=== PATIENT | female | born 1960 | race Caucasian/White ===

== ENCOUNTER 2023-07-20 08:57 | Outpatient (CLI) | payer OTHER, SELFPAY | END 2023-07-20 08:58 | disposition home or self-care (01) | PROVIDERS: PCP Nurse Practitioner; Visit Provider Surgery | DX: I89.0 Lymphedema, not elsewhere classified (principal); L97.229 Non-pressure chronic ulcer of left calf with unspecified severity; G35 Multiple sclerosis; E66.09 Other obesity due to excess calories; Z68.30 Body mass index [BMI] 30.0-30.9, adult | CPT/HCPCS: G0463 ==

== ENCOUNTER 2023-07-27 11:04 | Outpatient (CLI) | payer OTHER, SELFPAY | END 2023-07-27 11:05 | disposition home or self-care (01) | LOC: WOUND 11:05 | PROVIDERS: PCP Nurse Practitioner; Visit Provider Surgery | DX: I89.0 Lymphedema, not elsewhere classified (principal); L97.229 Non-pressure chronic ulcer of left calf with unspecified severity; G35 Multiple sclerosis | CPT/HCPCS: G0463 ==

== ENCOUNTER 2023-08-03 11:09 | Outpatient (CLI) | payer OTHER, SELFPAY | END 2023-08-03 11:10 | disposition home or self-care (01) | LOC: WOUND 11:09 | PROVIDERS: PCP Nurse Practitioner; Visit Provider Surgery | DX: I89.0 Lymphedema, not elsewhere classified (principal); L97.222 Non-pressure chronic ulcer of left calf with fat layer exposed; G35 Multiple sclerosis | CPT/HCPCS: 97597; G0463 ==

== ENCOUNTER 2023-08-10 11:07 | Outpatient (CLI) | payer OTHER, SELFPAY | END 2023-08-10 11:08 | disposition home or self-care (01) | PROVIDERS: PCP Nurse Practitioner; Visit Provider Surgery | DX: I89.0 Lymphedema, not elsewhere classified (principal); L97.222 Non-pressure chronic ulcer of left calf with fat layer exposed; G35 Multiple sclerosis | CPT/HCPCS: 97597 ==

== ENCOUNTER 2023-08-17 10:57 | Outpatient (CLI) | payer OTHER, SELFPAY | END 2023-08-17 10:58 | disposition home or self-care (01) | LOC: WOUND 11:06 | PROVIDERS: PCP Nurse Practitioner; Visit Provider Surgery | DX: I89.0 Lymphedema, not elsewhere classified (principal); L97.228 Non-pressure chronic ulcer of left calf with other specified severity; G35 Multiple sclerosis | CPT/HCPCS: 87070; 87186; G0463 ==

== ENCOUNTER 2023-08-24 11:04 | Outpatient (CLI) | payer OTHER, SELFPAY | END 2023-08-24 11:05 | disposition home or self-care (01) | LOC: WOUND 11:09 | PROVIDERS: PCP Nurse Practitioner; Visit Provider Surgery | DX: I89.0 Lymphedema, not elsewhere classified (principal); L97.228 Non-pressure chronic ulcer of left calf with other specified severity; B95.61 Methicillin susceptible Staphylococcus aureus infection as the cause of diseases classified elsewhere; G35 Multiple sclerosis | CPT/HCPCS: G0463 ==

== ENCOUNTER 2023-08-31 10:57 | Outpatient (CLI) | payer OTHER, SELFPAY | END 2023-08-31 10:58 | disposition home or self-care (01) | LOC: WOUND 10:57 | PROVIDERS: PCP Nurse Practitioner; Visit Provider Surgery | DX: I89.0 Lymphedema, not elsewhere classified (principal); L97.222 Non-pressure chronic ulcer of left calf with fat layer exposed; E66.09 Other obesity due to excess calories; Z68.30 Body mass index [BMI] 30.0-30.9, adult | CPT/HCPCS: G0463 ==

== ENCOUNTER 2023-09-07 11:02 | Outpatient (CLI) | payer OTHER, SELFPAY | END 2023-09-07 11:03 | disposition home or self-care (01) | LOC: WOUND 11:02 | PROVIDERS: PCP Nurse Practitioner; Visit Provider Surgery | DX: I89.0 Lymphedema, not elsewhere classified (principal); L97.228 Non-pressure chronic ulcer of left calf with other specified severity; G35 Multiple sclerosis | CPT/HCPCS: G0463 ==

== ENCOUNTER 2023-09-14 10:54 | Outpatient (CLI) | payer OTHER, SELFPAY | END 2023-09-14 10:55 | disposition home or self-care (01) | LOC: WOUND 10:54 | PROVIDERS: PCP Nurse Practitioner; Visit Provider Surgery | DX: I89.0 Lymphedema, not elsewhere classified (principal); L97.221 Non-pressure chronic ulcer of left calf limited to breakdown of skin; G35 Multiple sclerosis | CPT/HCPCS: 97597 ==

== ENCOUNTER 2023-09-21 11:03 | Outpatient (CLI) | payer OTHER, SELFPAY | END 2023-09-21 11:04 | disposition home or self-care (01) | LOC: WOUND 11:03 | PROVIDERS: PCP Nurse Practitioner; Visit Provider Surgery | DX: I89.0 Lymphedema, not elsewhere classified (principal); L97.222 Non-pressure chronic ulcer of left calf with fat layer exposed; G35 Multiple sclerosis | CPT/HCPCS: 97597 ==

== ENCOUNTER 2023-09-28 10:54 | Outpatient (CLI) | payer OTHER, SELFPAY | END 2023-09-28 10:55 | disposition home or self-care (01) | LOC: WOUND 10:54 | PROVIDERS: PCP Nurse Practitioner; Visit Provider Surgery | DX: I89.0 Lymphedema, not elsewhere classified (principal); L97.228 Non-pressure chronic ulcer of left calf with other specified severity; G35 Multiple sclerosis | CPT/HCPCS: G0463 ==

== ENCOUNTER 2023-10-05 11:01 | Outpatient (CLI) | payer OTHER, SELFPAY | END 2023-10-05 11:02 | disposition home or self-care (01) | LOC: WOUND 11:01 | PROVIDERS: PCP Nurse Practitioner; Visit Provider Surgery | DX: I89.0 Lymphedema, not elsewhere classified (principal); L97.228 Non-pressure chronic ulcer of left calf with other specified severity; G35 Multiple sclerosis | CPT/HCPCS: G0463 ==

== ENCOUNTER 2023-10-12 10:51 | Outpatient (CLI) | payer OTHER, SELFPAY | END 2023-10-12 10:52 | disposition home or self-care (01) | LOC: WOUND 10:51 | PROVIDERS: PCP Nurse Practitioner; Visit Provider Surgery | DX: I89.0 Lymphedema, not elsewhere classified (principal); L97.222 Non-pressure chronic ulcer of left calf with fat layer exposed; L97.218 Non-pressure chronic ulcer of right calf with other specified severity; G35 Multiple sclerosis | CPT/HCPCS: G0463 ==

== ENCOUNTER 2023-10-19 10:58 | Outpatient (CLI) | payer OTHER, SELFPAY | END 2023-10-19 10:59 | disposition home or self-care (01) | LOC: WOUND 10:58 | PROVIDERS: PCP Nurse Practitioner; Visit Provider Physician Assistant | DX: I89.0 Lymphedema, not elsewhere classified (principal); L97.221 Non-pressure chronic ulcer of left calf limited to breakdown of skin; L97.821 Non-pressure chronic ulcer of other part of left lower leg limited to breakdown of skin; G35 Multiple sclerosis | CPT/HCPCS: 97597 ==

== ENCOUNTER 2023-10-26 10:58 | Outpatient (CLI) | payer OTHER, SELFPAY | END 2023-10-26 10:59 | disposition home or self-care (01) | LOC: WOUND 10:58 | PROVIDERS: PCP Nurse Practitioner; Visit Provider Surgery | DX: I89.0 Lymphedema, not elsewhere classified (principal); L97.228 Non-pressure chronic ulcer of left calf with other specified severity | CPT/HCPCS: G0463 ==

== ENCOUNTER 2023-11-02 10:56 | Outpatient (CLI) | payer OTHER, SELFPAY | END 2023-11-02 10:57 | disposition home or self-care (01) | LOC: WOUND 10:56 | PROVIDERS: PCP Nurse Practitioner; Visit Provider Surgery | DX: I89.0 Lymphedema, not elsewhere classified (principal); L97.228 Non-pressure chronic ulcer of left calf with other specified severity; G35 Multiple sclerosis; E66.09 Other obesity due to excess calories; Z68.30 Body mass index [BMI] 30.0-30.9, adult | CPT/HCPCS: G0463 ==

== ENCOUNTER 2023-11-03 11:00 | Outpatient (RCR) | payer OTHER, SELFPAY ==
[2023-08-15 13:28] VITALS: BMI 29.2
--- NOTE | 2023-08-15 16:13 | OT.OPLE2 ---
OT Outpatient Lymphedema Eval* OT Outpatient Lymphedema Eval* Start: 08/15/23 13:28 Freq: Status: Active Protocol: Document 08/15/23 13:28 SUNNY (Rec: 08/15/23 16:13 SUNNY [id number]) E-signed By Sol Swanson, OTR/L, CLT OT Outpatient Evaluation Details Type Type Eval Complexity High Insurance Information Insurance Information Other Insurance [facility] Height and Weight Height Height 160.02 cm Weight Weight 74.843 kg Weight Measurement Method Stated by Patient BMI Body Mass Index (kg/m?) 29.2 BMI Classification Overweight OT OP Lymphedema Evaluation Current Condition/Medical Diagnosis Referring Provider Dr. 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 Other Precautions L posterior Venous Leg Ulcer ( being treated at the wound care clinic for this) Order from the wound care clinic: *Elevate legs above the level of your heart daily for 30 mins or more Medical Contraindications DM Medical History Medical History DM Medical History Comments PCP: Lian Bronson DNP ([facility]) Per chart on the Order No kidney or heart concerns Patient has a dx of Multiple Sclerosis, Lymphedema, 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 Usually the R and L leg are similar in size Living Situation Current Living Situation Home With Spouse Or SO Current Living Situation Comments Patient no longer ambulates due to her neurological dx: [place] Caregiver is her spouse, who provides assistance with all ADLs (transfers with the [employer]) Patient Difficulties Difficulties With Any Of The Following Walking,Dressing,Reaching Feet & Toes,Bathing/Showering, Preparing Meals,Sleeping In Bed Impairments Impairments Loss of Mobility,Difficulties With ADLs,Limb Heaviness,Poor Clothing Fit Problem List Problem List Limited Knowledge of Lymphedema Treatment/Condition /Precautions,Limited Knowledge of Skin Care & Infection Precautions,Significant Risk For Infection For Lymphedema Related Complications,Does Not Have a HEP,Does Not Know How To Bandage For Limb Reduction, Does Not Have Appropriate Compression Garments For LT Management,Presents With Increased Fall Risk Secondary To Lymphedema,Presents With Impaired Mobility/ROM Exercise History Does Patient Exercise Regularly No Pain Pain Yes Pain Comments 05/14 (general all over her body); L LE posterior calf has pain at the wound site Previous Treatment Previous Treatment For Swelling/ Compression Garment,Elevation Lymphedema Previous Treatment/Current Home Program Patient was issued 20-30 mmHg compression stockings when she was at [facility] but it is unknown if she was properly fitted and measured for these , she states that they were uncomfortable around the top of her foot (as she can has spasms) and felt more comfortable when she switched to 15 mmHg compression stockings. Patient needs different compression, was interested in trying a velcro wrap, it is important that her shoes still fit her. Compression History Does Patient Currently Wear Compression Yes During Daytime Compression During Daytime Comments Compression stockings started in 2022 Does Patient Currently Wear Compression No At Night Current Swelling (Location/Pitting/Texture) Pitting Scale: 0 = No pitting 1+ Tissue returns to normal almost immediately 2+ Tissue returns after 15-30 seconds 3+ Tissue returns after 1-1/2 minutes 4+ Tissue returns after 2-3 minutes N/A Tissue no longer pits due to induration Tissue texture: Soft or indurated Clinical Presentation Area Tissue no longer pits due to induration. Erythema present bilaterally but worse on the L LE (especially the top of the L foot). Both feet feel cold to the touch and patient states, my feet always feel cold to me This is blanchable with no concerns for infection at this time. L LE is weeping, R LE has dryness, especially around the area of the calf. Clinical Presentation Pitting/Texture Fibrosis present from ankle to mid thigh with the calf region being the most firm ARLYN: 1.04 Toes nails are thick and discolored (needing to be trimmed) /caregiver does this at home Skin Changes Stasis Dermatitis,Fibrosis, Limited Skin Mobility Capillary Refill Brisk Type of Swelling Secondary Staging Staging Stage 2 Circumferential Measurements Lower Extremity Left Lower Extremity Great Toe (in cm) 9 MTP (in cm) 24 Arch (in cm) 25.9 Calcaneus (in cm) 27.8 Ankle (in cm) 26 10 cm above Calcaneus Measurement 29.8 20 cm above Calcaneus Measurement 39 30 cm above Calcaneus Measurement 42 40 cm above Calcaneus Measurement 50 50 cm above Calcaneus Measurement 53.2 Total Girth in cm 326.7 LE Volume C 660.31 LE Volume D 947.30 LE Volume E 1305 LE Volume F 1688 LE Volume G 2119.47 Lower Extremity Volume Total in cm 6,720.08 Right Lower Extremity Great Toe (in cm) 9.7 MTP (in cm) 25.4 Arch (in cm) 27 Calcaneus (in cm) 30 Ankle (in cm) 26.5 10 cm above Calcaneus Measurement 32 20 cm above Calcaneus Measurement 42 30 cm above Calcaneus Measurement 46.6 40 cm above Calcaneus Measurement 51.2 50 cm above Calcaneus Measurement 57.3 Total Girth in cm 347.7 LE Volume C 765 LE Volume D 1096 LE Volume E 1563.10 LE Volume F 1904.26 LE Volume G 2344.48 Lower Extremity Volume Total in cm 7,672.84 Assessment Assessment 63-year-old female patient referred to skilled OT from the wound care clinic with medical dx of Lymphedema ( bilateral LE); Multiple Sclerosis; 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 Patient was pleasant, alert, orientated, asked great questions in session, was an active listener to information presented and showed signs of motivation/willingness to follow the presented protocol in POC (her spouse/caregiver was also present for the duration of the Eval). Therapist took measurements of bilateral LE's and explained to patient what would occur in the next 4 sessions. PLAN: manual lymph drainage, teach patient/caregiver self-massage /Lymph node clearing, fit and size patient for appropriate compression wraps, customize a home exercise program that fits the needs and ability of patient. Patient was a pleasure to work with today and it is anticipated that patient will make gains towards the written goals in POC. Patient Goals Patient Goals To reduce the size of my legs so that I can move them better and they will feel less heavy Click To Default Short Term Goals Standard Goals Short Term Goals Goal: Patient and or caregiver will understand lymphedema precautions to decrease risk of infection and further lymphedema related complications Goal: Patient will develop a tolerance for wearing multi- layer, short stretch bandages between treatment sessions to facilitate limb decongestion Goal: Patient will experience decreased pitting edema in order to improve tissue health and decrease risk for infection/cellulitis Goal: Patient will perform HEP with minimal assistance in order to improve lymphatic flow and venous return Click To Default Fpc Goals Standard Goals [employer] Leader Goals Goal: Patient and/or caregiver will be independent with short-stretch compression bandaging for continued volume reduction and prevention of recurrence Goal: Patient will experience increased ROM and mobility in order to improve safety and independence with transfers and mobility Treatment Plan Treatment Plan Evaluation,Edema Control,Joint Mobilization,Manual Therapy, Therapeutic Exercise, Therapeutic Activities,Self- Care/Home Management,Education Expected Frequency 1-2x Week Expected Duration 12 + weeks Certification Certification Statement I Certify That: Therapy Services Provided, Therapy Plan Established, Therapy Plan Reviewed Certification Information Clinic ID # [id number] Initial Certification Date 08/15/23 Recertification Due Date 12/13/23 Provider Signature Required Yes Provider Signature Shows Agreement With POC & Medical Necessity Physician NPI Number Write NPI# Here Physician Comment/Change Comment or Changes Physician Signature & Date Requested Please Sign/Date Here
[2023-08-15 16:14] VITALS: BMI 29.2
[2023-08-22 11:56] VITALS: BMI 29.2
[2023-08-24 12:25] VITALS: BMI 29.2
[2023-08-29 12:27] VITALS: BMI 29.2
[2023-08-31 14:29] VITALS: BMI 29.2
[2023-09-07 15:39] VITALS: BMI 29.2
[2023-09-12 08:33] VITALS: BMI 29.2
[2023-09-14 12:55] VITALS: BMI 29.2
[2023-09-20 10:03] VITALS: BMI 29.2
[2023-09-22 10:01] VITALS: BMI 29.2
[2023-09-27 09:57] VITALS: BMI 29.2
[2023-09-29 14:52] VITALS: BMI 29.2
[2023-10-04 08:45] VITALS: BMI 29.2
[2023-10-06 14:13] VITALS: BMI 29.2
[2023-10-11 11:30] VITALS: BMI 29.2
[2023-10-13 16:28] VITALS: BMI 29.2
[2023-10-18 13:22] VITALS: BMI 29.2
[2023-10-20 14:31] VITALS: BMI 29.2
[2023-10-25 13:32] VITALS: BMI 29.2
[2023-10-27 10:24] VITALS: BMI 29.2
[2023-11-01 11:33] VITALS: BMI 29.2
[2023-11-03 10:35] VITALS: BMI 29.2
== END 2023-12-28 15:19 | disposition home or self-care (01) ==
PROVIDERS: PCP Nurse Practitioner; Visit Provider Surgery
DX: I89.0 Lymphedema, not elsewhere classified (principal); Z51.89 Encounter for other specified aftercare
CPT/HCPCS: 97140; 97167

== ENCOUNTER 2023-11-09 11:00 | Outpatient (CLI) | payer OTHER, SELFPAY | END 2023-11-09 11:01 | disposition home or self-care (01) | LOC: WOUND 11:00 | PROVIDERS: PCP Nurse Practitioner; Visit Provider Surgery | DX: I89.0 Lymphedema, not elsewhere classified (principal); L97.822 Non-pressure chronic ulcer of other part of left lower leg with fat layer exposed; G35 Multiple sclerosis | CPT/HCPCS: 11042; 11045 ==

== ENCOUNTER 2023-11-16 10:57 | Outpatient (CLI) | payer OTHER, SELFPAY | END 2023-11-16 10:58 | disposition home or self-care (01) | LOC: WOUND 10:57 | PROVIDERS: PCP Nurse Practitioner; Visit Provider Surgery | DX: I89.0 Lymphedema, not elsewhere classified (principal); L97.828 Non-pressure chronic ulcer of other part of left lower leg with other specified severity; G35 Multiple sclerosis | CPT/HCPCS: G0463 ==

== ENCOUNTER 2023-11-23 10:59 | Outpatient (CLI) | payer OTHER, SELFPAY | END 2023-11-23 11:00 | disposition home or self-care (01) | LOC: WOUND 10:59 | PROVIDERS: PCP Nurse Practitioner; Visit Provider Surgery | DX: I89.0 Lymphedema, not elsewhere classified (principal); L97.822 Non-pressure chronic ulcer of other part of left lower leg with fat layer exposed; G35 Multiple sclerosis | CPT/HCPCS: 97597; 97598 ==

== ENCOUNTER 2023-11-30 10:57 | Outpatient (CLI) | payer OTHER, SELFPAY | END 2023-11-30 10:58 | disposition home or self-care (01) | LOC: WOUND 10:57 | PROVIDERS: PCP Nurse Practitioner; Visit Provider Surgery | DX: I89.0 Lymphedema, not elsewhere classified (principal); L97.828 Non-pressure chronic ulcer of other part of left lower leg with other specified severity; G35 Multiple sclerosis | CPT/HCPCS: G0463 ==

== ENCOUNTER 2023-12-07 10:56 | Outpatient (CLI) | payer OTHER, SELFPAY | END 2023-12-07 10:57 | disposition home or self-care (01) | LOC: WOUND 10:56 | PROVIDERS: PCP Nurse Practitioner; Visit Provider Surgery | DX: I89.0 Lymphedema, not elsewhere classified (principal); L97.822 Non-pressure chronic ulcer of other part of left lower leg with fat layer exposed; G35 Multiple sclerosis | CPT/HCPCS: G0463 ==

== ENCOUNTER 2023-12-14 10:59 | Outpatient (CLI) | payer OTHER, SELFPAY | END 2023-12-14 11:00 | disposition home or self-care (01) | LOC: WOUND 10:59 | PROVIDERS: PCP Nurse Practitioner; Visit Provider Surgery | DX: I89.0 Lymphedema, not elsewhere classified (principal); L97.822 Non-pressure chronic ulcer of other part of left lower leg with fat layer exposed; G35 Multiple sclerosis | CPT/HCPCS: 97597 ==

== ENCOUNTER 2023-12-21 10:58 | Outpatient (CLI) | payer OTHER, SELFPAY | END 2023-12-21 10:59 | disposition home or self-care (01) | LOC: WOUND 10:58 | PROVIDERS: PCP Nurse Practitioner; Visit Provider Surgery | DX: I89.0 Lymphedema, not elsewhere classified (principal); L97.828 Non-pressure chronic ulcer of other part of left lower leg with other specified severity; G35 Multiple sclerosis | CPT/HCPCS: G0463 ==

== ENCOUNTER 2023-12-28 10:59 | Outpatient (CLI) | payer OTHER, SELFPAY | END 2023-12-28 11:00 | disposition home or self-care (01) | LOC: WOUND 10:59 | PROVIDERS: PCP Nurse Practitioner; Visit Provider Surgery | DX: I89.0 Lymphedema, not elsewhere classified (principal); L97.822 Non-pressure chronic ulcer of other part of left lower leg with fat layer exposed; G35 Multiple sclerosis | CPT/HCPCS: 97597 ==

== ENCOUNTER 2024-01-04 10:42 | Outpatient (CLI) | payer OTHER, SELFPAY | END 2024-01-04 10:43 | disposition home or self-care (01) | LOC: WOUND 11:00 | PROVIDERS: PCP Nurse Practitioner; Visit Provider Surgery | DX: I89.0 Lymphedema, not elsewhere classified (principal); L97.828 Non-pressure chronic ulcer of other part of left lower leg with other specified severity; G35 Multiple sclerosis | CPT/HCPCS: G0463 ==

== ENCOUNTER 2024-01-18 11:06 | Outpatient (CLI) | payer OTHER, SELFPAY | END 2024-01-18 11:07 | disposition home or self-care (01) | LOC: WOUND 11:06 | PROVIDERS: PCP Nurse Practitioner; Visit Provider Nurse Practitioner Family | DX: I89.0 Lymphedema, not elsewhere classified (principal); L97.828 Non-pressure chronic ulcer of other part of left lower leg with other specified severity; G35 Multiple sclerosis | CPT/HCPCS: G0463 ==

== ENCOUNTER 2024-01-25 10:47 | Outpatient (CLI) | payer OTHER, SELFPAY | END 2024-01-25 10:48 | disposition home or self-care (01) | LOC: WOUND 10:58 | PROVIDERS: PCP Nurse Practitioner; Visit Provider Nurse Practitioner Family | DX: I89.0 Lymphedema, not elsewhere classified (principal); G35 Multiple sclerosis | CPT/HCPCS: G0463 ==